=== PATIENT | female | born 1990 | race Hispanic/Latino ===

== ENCOUNTER 2022-11-29 14:15 | Emergency (ER) | payer MEDICAID ==
[~2022-11-29] VITALS: Ht 157.5 cm; Wt 90.7 kg
[2022-11-29 16:05] LABS: BASOPHILS % (AUTO) 0.5 % (0.0-5.0); EOSINOPHILS % (AUTO) 0.4 % (0.0-8.0); HEMATOCRIT 35.3 % (36-48); LYMPHOCYTES % (AUTO) 15.8 % (21.0-51.0); MEAN CORPUSCULAR HEMOGLOBIN 24.6 pg (27.0-33.0); MEAN CORPUSCULAR HGB CONC 32.6 g/dL (32.0-36.0); MEAN CORPUSCULAR VOLUME 75.6 fL (79-99); PLATELET COUNT (AUTO) 418 K/uL (130-400); RED BLOOD CELL COUNT(AUTO) 4.67 MIL/uL (4.00-5.50); RED CELL DISTRIBUTION WIDTH 15.1 % (11.0-15.5); WHITE BLOOD COUNT (AUTO) 11.5 K/uL (4.8-10.8)
[2022-11-29 16:16] LABS: CREATININE 0.6 mg/dL (0.5-1.5); POTASSIUM 3.1 mmol/L (3.5-5.1)
[2022-11-29 16:22] LABS: ALBUMIN 3.7 g/dL (3.5-5.0); TOTAL PROTEIN, SERUM 7.5 g/dL (6.0-8.3)
[2022-11-29 17:06] LABS: MAGNESIUM 1.8 mg/dL (1.80-2.40); THYROID STIMULATING HORMONE 0.99 uIU/mL (0.36-3.74)
[2022-11-29] MEDS ORDERED: POTASSIUM BICARB/CIT AC 25 MEQ TABLET.EFF PO ONE (17:30)
[2022-11-29] MEDS ORDERED: HYOSCYAMINE SULFATE 0.125 MG TAB.SUBL SL SCH (17:30)
[2022-11-29] MEDS ORDERED: PANTOPRAZOLE 40 MG/VIAL IVP ONE (17:30)
[2022-11-29 17:52] LABS: APPEARANCE,URINE CLEAR (CLEAR); BILIRUBIN,URINE NEGATIVE (NEGATIVE); COLOR,URINE LIGHT-YELLOW (YELLOW); GLUCOSE, URINE (UA) NEGATIVE (NEGATIVE); KETONES,URINE 10 mg/dL (NEGATIVE); LEUKOCYTE ESTERASE ,URINE NEGATIVE Leu/uL (NEGATIVE); NITRATE,URINE NEGATIVE (NEGATIVE); OCCULT BLOOD,URINE NEGATIVE (NEGATIVE); PH,URINE 5.5 (5.0-8.0); PROTEIN,URINE 10 mg/dL (NEGATIVE); UROBILINOGEN,URINE 0.2 mg/dL (0.2-1.0)
[2022-11-29 18:02] LABS: BACTERIA,URINE RARE /HPF (None Seen); MUCUS,URINE RARE LPF (None Seen); SQUAMOUS EPITHELIAL CELL,UR RARE /HPF (0-2)
[2022-11-29 19:21] VITALS: BP 121/75
== END 2022-11-29 19:39 | disposition home or self-care (01) ==
LOC: EDH 14:15
DX: R07.89 Other chest pain (principal); I10 Essential (primary) hypertension; G43.909 Migraine, unspecified, not intractable, without status migrainosus; Z86.73 Personal history of transient ischemic attack (TIA), and cerebral infarction without residual deficits; Z20.822 Contact with and (suspected) exposure to COVID-19
CPT/HCPCS: 99285; 96374; 70450; 71045; 87635; 84443; 83735; 84484; 80053; 83690; 85025; 85378; 81001; 81025; 36415; 93005; C9803; S0164; C9113

== ENCOUNTER → 2022-11-29 | Outpatient (CLI) | payer MEDICAID ==
[~2022-11-29] MED LIST: IOHEXOL 350 MG/ML 100ML INFUS..BTL IV ONE; METOPROLOL TARTRATE 1 MG/ML 5ML VIAL IV ONE
== END | disposition home or self-care (01) ==
LOC: RAH 10:11
PROVIDERS: ATTEND Student in an Organized Health Care Education/Training Program
DX: R07.9 Chest pain, unspecified (principal)
CPT/HCPCS: 75574; J3490; Q9967

== ENCOUNTER 2023-07-21 07:05 | Day surgery (SDC) | payer MEDICAID ==
[2023-07-16 13:44] VITALS: BP 135/84; PULSE 81; RESP 17
[~2023-07-21] VITALS: Ht 152.4 cm; Wt 99.2 kg
[2023-07-21] VITALS (7 sets, daily range): BP systolic 115–140; BP diastolic 65–88; PULSE 68–73; RESP 15–16
[~2023-07-21 07:05] MED LIST changes: +AMLO-258 PO; -IOHEXOL 350 MG/ML 100ML INFUS..BTL IV ONE; +LISI40TA9 PO; -METOPROLOL TARTRATE 1 MG/ML 5ML VIAL IV ONE; +NAPR-1023 PO
[2023-07-21] MEDS ORDERED: 0.9%NACL 1000ML 1,000 ML IV ONE (07:36)
[2023-07-21] MEDS ORDERED: IODIXANOL 320 MG/ML 100 ML VIAL ONE (09:09)
[2023-07-21] MEDS ORDERED: LIDOCAINE HCL 400MG/20ML VIAL ONE (09:09)
[2023-07-21] MEDS ORDERED: FENTANYL CITRATE PF 50 MCG/1 ML 2ML VIAL ONE (09:10)
[2023-07-21] MEDS ORDERED: MIDAZOLAM HCL 1 MG/ML 2ML VIAL ONE ×3 (09:10→10:09)
[2023-07-21] MEDS ORDERED: GLUCAGON 1MG KIT 1 MG ML IM PRN (10:00)
[2023-07-21] MEDS ORDERED: DEXTROSE 50%-WATER 50 ML DISP.SYRIN IV PRN (10:00)
[2023-07-21] MEDS ORDERED: 0.9%NACL 1000ML 1,000 ML IV SCH (10:00)
[2023-07-21] MEDS ORDERED: MEPERIDINE-PF 25 MG/ML SYG ONE (10:09)
== END 2023-07-21 13:00 | disposition home or self-care (01) ==
LOC: DAH 07:05
PROVIDERS: ATTEND Internal Medicine Cardiovascular Disease
DX: I87.1 Compression of vein (principal); I87.2 Venous insufficiency (chronic) (peripheral); I10 Essential (primary) hypertension; E78.5 Hyperlipidemia, unspecified; E66.01 Morbid (severe) obesity due to excess calories; R55 Syncope and collapse; I45.10 Unspecified right bundle-branch block; Z79.01 Long term (current) use of anticoagulants; Z79.899 Other long term (current) drug therapy; Z98.891 History of uterine scar from previous surgery; Z82.49 Family history of ischemic heart disease and other diseases of the circulatory system; Z68.41 Body mass index [BMI] 40.0-44.9, adult
CPT/HCPCS: 75822; 36012; 37252; 37253 ×5; C1769; C1894 ×2; C1753; J3010; J3490 ×2; J7030; J2250 ×3; J2175; J1644; A4215; A4222; A4221; A4663; A4216; A4606; A4223 ×3; 96360; 96361; 99156; 99157; Q9967

== ENCOUNTER 2023-10-02 18:36 | Emergency (ER) | payer MEDICAID ==
[~2023-10-02] VITALS: Ht 154.9 cm; Wt 101.6 kg
[2023-10-02 19:26] VITALS: BP 137/86; PULSE 90; RESP 20
[2023-10-02] MEDS: ACETAMINOPHEN 500 MG TABLET PO ONE (23:41)
[2023-10-03] MEDS ORDERED: ASPI-1005 PO (01:14)
== END 2023-10-03 01:36 | disposition home or self-care (01) ==
LOC: EDH 18:36
DX: I73.9 Peripheral vascular disease, unspecified (principal); M79.662 Pain in left lower leg; M79.661 Pain in right lower leg; I10 Essential (primary) hypertension; G43.909 Migraine, unspecified, not intractable, without status migrainosus; Z79.899 Other long term (current) drug therapy; Z98.890 Other specified postprocedural states
CPT/HCPCS: 93926; 93971